=== PATIENT | female | born 1970 | race American Indian/Alaskan Native ===

== ENCOUNTER 2017-07-17 13:24 | Emergency (ER) | payer OTHER ==
[2017-07-17 13:24] VITALS: BMI 29.8
[2017-07-17 14:35] LABS: BASO % 0.7 % (0.0-2.0); EOS % 0.4 % (0.0-4.0); LYMPH # 0.8 K/uL (1.0-4.3); LYMPH % 19.5 % (20.0-40.0); MEAN CELL VOLUME 87.5 fL (81.0-99.0); MEAN CORPUSCULAR HGB CONC 34.3 g/dL (33.0-37.0); MONO # 0.2 K/uL (0.0-0.8); MONO % 4.2 % (0.0-10.0); NEUT # 2.9 K/uL (1.8-7.0); NEUT % 75.2 % (50.0-75.0); NRBC % 0.2 % (0.0-2.0); RBC 4.78 Mil/uL (3.80-5.20); RED CELL DISTRIBUTION WIDTH 13.4 % (11.5-14.5); WHITE BLOOD COUNT 3.9 K/uL (4.8-10.8)
[2017-07-17 14:37] LABS: HEMOGLOBIN 14.4 g/dL (11.0-16.0)
[2017-07-17 14:39] LABS: SQUAMOUS EPITHIAL 13 /hpf (0-5); URINE BACTERIA RARE (<OCC); URINE BILIRUBIN NEGATIVE (NEGATIVE); URINE BLOOD NEGATIVE (NEGATIVE); URINE CLARITY Hazy (Clear); URINE GLUCOSE (UA) NORMAL (Normal); URINE LEUKOCYTE ESTERASE NEG Leu/uL (Negative); URINE PROTEIN NEGATIVE (NEGATIVE); URINE UROBILINOGEN NORMAL mg/dL (0.2-1.0)
[2017-07-17 14:43] LABS: URINE COLOR YELLOW (YELLOW)
[2017-07-17 14:55] LABS: ALBUMIN 4.3 g/dL (3.5-5.0); ALT/SGPT 34 U/L (9-52); AST/SGOT 39 U/L (14-36); BARBITURATES, UR NEGATIVE (NEGATIVE); BENZODIAZEPINES, UR NEGATIVE (NEGATIVE); BLOOD UREA NITROGEN 6 mg/dL (7-17); CALCIUM 9.6 mg/dl (8.6-10.4); GFR AFRICAN-AMERICAN > 60; GFR NON-AFRICAN AMERICAN > 60; OPIATES, UR NEGATIVE (NEGATIVE); PHENCYCLIDINE, UR NEGATIVE (NEGATIVE)
--- NOTE | 2017-07-17 15:15 | C.PDOC ---
History Of Present Illness Patient is a 47 y/o female who presents to the ED BIBA with daughter complaining of drowsiness s/p heroin use today. Patient admits to heroin use today, and states interest in detox. Patient is currently awake and alert in ED ; crisis notified. Patient denies any SI/HI or any other physical complaints at this time. Time Seen by Provider: 07/17/17 13:46 Chief Complaint (Nursing): Substance Abuse History Per: Patient, Family (daughter) History/Exam Limitations: no limitations Onset/Duration Of Symptoms: Hrs (today ) Current Symptoms Are (Timing): Still Present Modifying Factor(s): Narcotics (heroin) Recent travel outside of the [place]: No Past Medical History Reviewed: Historical Data, Nursing Documentation, Vital Signs Vital Signs: Last Vital Signs Temp 98.2 F 07/17/17 15:46 Pulse 72 07/17/17 15:46 Resp 16 07/17/17 15:46 BP 162/95 H 07/17/17 15:46 Pulse Ox 99 07/17/17 15:46 - Medical History PMH: No Chronic Diseases Surgical History: Cholecystectomy - [facility] Procedures BILAT ENDOS OCC TUBE NEC (05/08/97) MONITORING NOS (03/29/97) LAPAROSCOPIC CHOLECYSTECTOMY (10/19/12) OTHER LAPAROSCOPIC UMBILICAL HERNIORRHAPHY (10/19/12) REPAIR OB LACERATION NEC (03/29/97) Family History: States: No Known Family Hx - Social History Hx Tobacco Use: No Hx Alcohol Use: No Hx Substance Use: No Review Of Systems Neurological: Positive for: Other (heroin use) Psych: Negative for: Suicidal ideation Physical Exam - Physical Exam Appears: Well, Non-toxic, No Acute Distress Skin: Normal Color, Warm, Dry Head: Atraumatic, Normacephalic Oral Mucosa: Moist Chest: Symmetrical Cardiovascular: Rhythm Regular, No Murmur Respiratory: Normal Breath Sounds, No Rales, No Rhonchi, No Wheezing Gastrointestinal/Abdominal: Soft, No Tenderness Neurological/Psych: Oriented x3 (alert and awake) ED Course And Treatment - Laboratory Results Result Diagrams: 07/17/17 14:26 07/17/17 14:26 O2 Sat by Pulse Oximetry: 100 Progress Note: Drug urine and zofran ordered. Glucose ordered. Medical Decision Making Medical Decision Making: Due to negative drug urine,patient initially discharged home however psychiatrist is willing to admit. Crisis discussed with patient and she does not wish to stay in hospital. Patient family member in ER and very aggressive towards staff making accusations that the urine is false and we do not want to admit her mother. Attempted to redirect patient family member and request her to step out of the room and patient family member refused to leave ER. Disposition Counseled Patient/Family Regarding: Studies Performed, Diagnosis, Need For Followup - Disposition Disposition: HOME/ ROUTINE Disposition Time: 15:29 Condition: STABLE Additional Instructions: follow up with your doctor in 2 days call to make an appointment return to hospital if symptoms worsens or progress continue your home medications as previously prescribed Instructions: Opioid Use Disorder Forms: [facility] (Arabic), General Discharge Instructions - Clinical Impression Clinical Impression: Drug abuse - Scribe Statement The provider has reviewed the documentation as recorded by the Scribe Shyanne Narayanan All medical record entries made by the Scribe were at my direction and personally dictated by me. I have reviewed the chart and agree that the record accurately reflects my personal performance of the history, physical exam, medical decision making, and the department course for this patient. I have also personally directed, reviewed, and agree with the discharge instructions and disposition.
[2017-07-17 15:47] VITALS: BP 162/95; PULSE 72; RESP 16; TEMP 98.2
[2017-07-17 20:14] VITALS: O2SAT 100
== END 2017-07-17 15:46 | disposition home or self-care (01) ==
LOC: C.ER 13:24
DX: F19.10 Other psychoactive substance abuse, uncomplicated (principal)